=== PATIENT | male | born 2000 | race Caucasian/White ===

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

== ENCOUNTER 2022-03-02 20:18 | Emergency (ER) | payer MEDICAID ==
[~2022-03-02] VITALS: Ht 167.6 cm; Wt 65.8 kg
[2022-03-02 21:22] LABS: Urine Bacteria FEW /hpf (None Seen); Urine Blood 3+ /uL (Negative); Urine Mucus FEW (None Seen); Urine Specific Gravity 1.018 (1.001-1.035); Urine WBC 37 /hpf (0 - 3)
[2022-03-03] MEDS ORDERED: CEPH500C PO (01:21)
[2022-03-03 01:32] VITALS: BP 120/69
== END 2022-03-03 01:43 | disposition home or self-care (01) ==
LOC: ER 20:18
DX: N30.90 Cystitis, unspecified without hematuria (principal); Z79.899 Other long term (current) drug therapy
CPT/HCPCS: 81001